=== PATIENT | female | born 1955 | race Caucasian/White ===

== ENCOUNTER → 2023-09-27 11:06 | Outpatient (REF) | payer MEDICARE, SELFPAY ==
[2023-09-27 12:02] LABS: % Basophils 0.6 % (0-2); % Eosinophils 4.1 % (0-6); % Immature Granulocytes 0.2 % (0-0.5); % Lymphocytes 26.3 % (20.5-51.1); % Monocytes 10.8 % (1.7-9.3); Absolute Eosinophils 0.2 10^3/uL (0-0.7); Absolute Lymphocytes 1.2 10^3/uL (1.2-3.4); Absolute Monocytes 0.5 10^3/uL (0.1-0.6); Absolute Neutrophils 2.7 10^3/uL (1.4-6.5); Hematocrit 35.5 % (37.0-47.0); Mean Corp Hgb Conc. 33.8 g/dL (33.0-37.0); Mean Corpuscular Hgb 32.1 pg (27.0-31.0); Mean Corpuscular Volume 94.9 fL (81.0-99.0); Mean Platelet Volume 8.5 fL (7.4-10.4); Nucleated Red Blood Cells % 0 %; Platelet Count 195 10^3/uL (130-400); Red Blood Cell Count 3.74 10^6/uL (4.20-5.40); Red Cell Dist. Width 12.6 % (11.5-14.5); White Blood Cell Count 4.6 10^3/uL (4.8-10.8)
[2023-09-27 12:15] LABS: ALT (SGPT) 17 U/L (0-35); AST (SGOT) 29 U/L (14-36); Albumin 4.4 g/dl (3.5-5.0); Alkaline Phosphatase 76 U/L (38-126); Blood Urea Nitrogen 23 mg/dl (7-17); Calcium 9.4 mg/dl (8.4-10.2); Carbon Dioxide 28 mmol/L (22-30); Chloride 104 mmol/L (98-107); Glucose 95 mg/dl (70-99); Potassium 4.4 mmol/L (3.5-5.1); Sodium 138 mmol/L (135-145); Total Bilirubin 0.4 mg/dl (0.2-1.3); eGFR > 60.00
== END ==
LOC: REG 11:06
PROVIDERS: ATTENDING PHYSICIAN Internal Medicine Hematology & Oncology; FAMILY PHYSICIAN Family Medicine
DX: C15.4 Malignant neoplasm of middle third of esophagus (principal); C77.0 Secondary and unspecified malignant neoplasm of lymph nodes of head, face and neck; C77.8 Secondary and unspecified malignant neoplasm of lymph nodes of multiple regions; D50.9 Iron deficiency anemia, unspecified; D63.0 Anemia in neoplastic disease
CPT/HCPCS: 36415; 71260; 74177; 80053; 85025; Q9967

== ENCOUNTER → 2024-01-09 15:20 | Outpatient (REF) | payer MEDICARE, SELFPAY | LOC: HWWDC 15:20 | PROVIDERS: ATTENDING PHYSICIAN Family Medicine | DX: Z12.31 Encounter for screening mammogram for malignant neoplasm of breast (principal) | CPT/HCPCS: 77063; 77067 ==

== ENCOUNTER → 2024-03-15 11:00 | Outpatient (REF) | payer MEDICARE, SELFPAY | LOC: HWRAD 11:00 | PROVIDERS: ATTENDING PHYSICIAN Internal Medicine Hematology & Oncology; FAMILY PHYSICIAN Family Medicine | DX: C15.4 Malignant neoplasm of middle third of esophagus (principal); C77.0 Secondary and unspecified malignant neoplasm of lymph nodes of head, face and neck; C77.8 Secondary and unspecified malignant neoplasm of lymph nodes of multiple regions; E50.9 Vitamin A deficiency, unspecified; E63.0 Essential fatty acid [EFA] deficiency | CPT/HCPCS: 71260; 74177; Q9967 ==

== ENCOUNTER → 2024-03-27 10:29 | Outpatient (REF) | payer MEDICARE, SELFPAY ==
[2024-03-27 11:23] LABS: % Basophils 0.6 % (0-2); % Eosinophils 8.1 % (0-6); % Immature Granulocytes 0.6 % (0-0.5); % Lymphocytes 25.4 % (20.5-51.1); % Monocytes 11.2 % (1.7-9.3); % Neutrophils 54.1 % (42.2-75.2); Absolute Eosinophils 0.4 10^3/uL (0-0.7); Absolute Lymphocytes 1.3 10^3/uL (1.2-3.4); Absolute Monocytes 0.6 10^3/uL (0.1-0.6); Absolute Neutrophils 2.7 10^3/uL (1.4-6.5); Hematocrit 37.1 % (37.0-47.0); Hemoglobin 12.5 g/dL (12.0-16.0); Mean Corp Hgb Conc. 33.7 g/dL (33.0-37.0); Mean Corpuscular Hgb 32.5 pg (27.0-31.0); Mean Corpuscular Volume 96.4 fL (81.0-99.0); Mean Platelet Volume 8.3 fL (7.4-10.4); Nucleated Red Blood Cells % 0 %; Platelet Count 190 10^3/uL (130-400); Red Blood Cell Count 3.85 10^6/uL (4.20-5.40); Red Cell Dist. Width 12.2 % (11.5-14.5); White Blood Cell Count 5.1 10^3/uL (4.8-10.8)
[2024-03-27 11:59] LABS: ALT (SGPT) 18 U/L (0-35); AST (SGOT) 34 U/L (14-36); Albumin 4.5 g/dl (3.5-5.0); Alkaline Phosphatase 73 U/L (38-126); Blood Urea Nitrogen 25 mg/dl (7-17); Calcium 9.4 mg/dl (8.4-10.2); Carbon Dioxide 30 mmol/L (22-30); Chloride 101 mmol/L (98-107); Glucose 77 mg/dl (70-99); Potassium 4.8 mmol/L (3.5-5.1); Sodium 141 mmol/L (135-145); Total Bilirubin 0.3 mg/dl (0.2-1.3); Total Protein 6.8 g/dl (6.3-8.2); eGFR > 60.00
== END ==
LOC: REG 10:29
PROVIDERS: ATTENDING PHYSICIAN Internal Medicine Hematology & Oncology; FAMILY PHYSICIAN Family Medicine
DX: C15.4 Malignant neoplasm of middle third of esophagus (principal); C77.0 Secondary and unspecified malignant neoplasm of lymph nodes of head, face and neck; C77.8 Secondary and unspecified malignant neoplasm of lymph nodes of multiple regions; D50.9 Iron deficiency anemia, unspecified; D63.0 Anemia in neoplastic disease
CPT/HCPCS: 36415; 80053; 85025

== ENCOUNTER → 2024-09-30 09:57 | Outpatient (REF) | payer MEDICARE, SELFPAY ==
[2024-09-30 10:48] LABS: % Basophils 0.7 % (0-2); % Eosinophils 5.8 % (0-6); % Immature Granulocytes 0.5 % (0-0.5); % Lymphocytes 22.2 % (20.5-51.1); % Monocytes 10.9 % (1.7-9.3); % Neutrophils 59.9 % (42.2-75.2); Absolute Eosinophils 0.3 10^3/uL (0-0.7); Absolute Lymphocytes 1.3 10^3/uL (1.2-3.4); Absolute Monocytes 0.6 10^3/uL (0.1-0.6); Absolute Neutrophils 3.5 10^3/uL (1.4-6.5); Hematocrit 35.5 % (37.0-47.0); Mean Corp Hgb Conc. 33.8 g/dL (33.0-37.0); Mean Corpuscular Hgb 32.3 pg (27.0-31.0); Mean Corpuscular Volume 95.7 fL (81.0-99.0); Mean Platelet Volume 8.3 fL (7.4-10.4); Nucleated Red Blood Cells % 0 %; Platelet Count 201 10^3/uL (130-400); Red Blood Cell Count 3.71 10^6/uL (4.20-5.40); Red Cell Dist. Width 12.9 % (11.5-14.5); White Blood Cell Count 5.9 10^3/uL (4.8-10.8)
[2024-09-30 11:20] LABS: ALT (SGPT) 16 U/L (0-35); AST (SGOT) 25 U/L (14-36); Albumin 4.7 g/dl (3.5-5.0); Alkaline Phosphatase 83 U/L (38-126); Blood Urea Nitrogen 18 mg/dl (7-17); Calcium 9.5 mg/dl (8.4-10.2); Carbon Dioxide 28 mmol/L (22-30); Chloride 102 mmol/L (98-107); Glucose 94 mg/dl (70-99); Potassium 4.6 mmol/L (3.5-5.1); Sodium 140 mmol/L (135-145); Total Bilirubin 0.5 mg/dl (0.2-1.3); Total Protein 7.1 g/dl (6.3-8.2); eGFR > 60.00
== END ==
LOC: RAD 09:57
PROVIDERS: ATTENDING PHYSICIAN Internal Medicine Hematology & Oncology
DX: C15.4 Malignant neoplasm of middle third of esophagus (principal); C77.0 Secondary and unspecified malignant neoplasm of lymph nodes of head, face and neck; C77.8 Secondary and unspecified malignant neoplasm of lymph nodes of multiple regions; D50.9 Iron deficiency anemia, unspecified
CPT/HCPCS: 36415; 71260; 74177; 80053; 85025; Q9967

== ENCOUNTER → 2025-01-09 12:54 | Outpatient (REF) | payer MEDICARE, SELFPAY | LOC: HWWDC 12:54 | PROVIDERS: ATTENDING PHYSICIAN Family Medicine | DX: Z12.31 Encounter for screening mammogram for malignant neoplasm of breast (principal) | CPT/HCPCS: 77063; 77067 ==

== ENCOUNTER → 2025-04-01 11:46 | Outpatient (REF) | payer MEDICARE, SELFPAY ==
[2025-04-01 12:31] LABS: Hematocrit 38.6 % (37.0-47.0); Hemoglobin 12.8 g/dL (12.0-16.0); Mean Corp Hgb Conc. 33.2 g/dL (33.0-37.0); Mean Corpuscular Volume 95.5 fL (81.0-99.0); Nucleated Red Blood Cells % 0 %; Platelet Count 203 10^3/uL (130-400); Red Cell Dist. Width 12.6 % (11.5-14.5)
[2025-04-01 13:22] LABS: ALT (SGPT) 18 U/L (0-35); AST (SGOT) 28 U/L (14-36); Albumin 4.5 g/dl (3.5-5.0); Alkaline Phosphatase 80 U/L (38-126); Blood Urea Nitrogen 15 mg/dl (7-17); Calcium 9.4 mg/dl (8.4-10.2); Carbon Dioxide 28 mmol/L (22-30); Chloride 104 mmol/L (98-107); Glucose 89 mg/dl (70-99); Potassium 4.4 mmol/L (3.5-5.1); Sodium 136 mmol/L (135-145); Total Protein 7.3 g/dl (6.3-8.2); eGFR > 60.00
== END ==
LOC: REG 11:46
PROVIDERS: ATTENDING PHYSICIAN Internal Medicine Hematology & Oncology; FAMILY PHYSICIAN Internal Medicine Geriatric Medicine
DX: C15.4 Malignant neoplasm of middle third of esophagus (principal); C77.0 Secondary and unspecified malignant neoplasm of lymph nodes of head, face and neck; C77.8 Secondary and unspecified malignant neoplasm of lymph nodes of multiple regions; D50.9 Iron deficiency anemia, unspecified; D63.0 Anemia in neoplastic disease
CPT/HCPCS: 36415; 80053; 85025